=== PATIENT | female | born 1960 | race Caucasian/White ===

== ENCOUNTER 2016-07-08 19:42 | Emergency (ER) | payer OTHER ==
[~2016-07-08] VITALS: Ht 175.3 cm; Wt 72.4 kg
[~2016-07-08 19:42] MED LIST: ATIVAN1 MG PO; AUGMENTIN875 MG PO; CELEXA40 MG PO; INDOCIN50 MG PO; LEVOFLOXACIN750 MG PO; LORTAB 5-500 T1 EACH PO; MOBIC15 MG PO; TUSSIN CF MAX118 ML PO
[2016-07-08 21:18] LABS: BASOPHIL COUNT 0.1 K/uL (0-0.1); EOSINOPHIL (%) 1.3 % (0-5); EOSINOPHIL COUNT 0.1 K/uL (0-0.3); HEMATOCRIT 35.5 % (36.0-46.0); IMMATURE GRANULOCYTE (%) 0.1 % (0.0-0.7); INSTRUMENT ABS NEUTROPHIL CT 2.5 K/uL; LYMPHOCYTE COUNT 4.5 K/uL (1.0-2.8); MCH 30.4 PG (29.0-34.0); MCHC 32.7 G/DL (30.0-36.0); MCV 93.2 FL (83-99); MEAN PLAT.VOLUME 9.7 uM^3 (9.5-12.4); MONOCYTE (%) 7.1 % (3-12); MONOCYTE COUNT 0.5 K/uL (0-0.8); NEUTROPHIL (%) 32.3 % (45-76); NEUTROPHIL COUNT 2.5 K/uL (1.8-6.4); PLATELET COUNT 273 K/uL (156-360); RBC DIS.WIDTH-CV 13.4 % (11.8-14.6); RBC DIS.WIDTH-SD 45.6 % (39-53); RED BLOOD COUNT 3.81 M/uL (3.80-5.20); WHITE BLOOD COUNT 7.6 K/uL (4.1-10.2)
[2016-07-08 21:26] LABS: CHLORIDE 108 mEq/L (99-109); SODIUM 142 mEq/L (136-147)
[2016-07-08 21:27] LABS: GLUCOSE 90 mg/dL (70-99)
[2016-07-08 21:29] LABS: ANION GAP 7 MEQ/L (2-14)
[2016-07-08 21:30] LABS: D-DIMER ELISA 0.25 mg/L FEU (< 0.57); INTER. NORMALIZED RATIO 1.1; PROTHROMBIN TIME 10.7 (9.2-11.2); PTT 26.1 (25-32)
[2016-07-08 21:31] LABS: GFR ESTIMATE (CALCULATED) 50 mL/min/
[2016-07-08 21:32] LABS: UREA NITROGEN (BUN) 12 mg/dL (9-23)
[2016-07-08 21:40] LABS: TROP-I INTERPRETATION NEGATIVE; TROPONIN-I < 0.01 ng/mL (0.0-0.30)
[2016-07-08 22:41] VITALS: BP 133/64
== END 2016-07-08 22:42 | disposition home or self-care (01) ==
LOC: EME 19:42
PROVIDERS: Emergency Medicine
DX: R07.89 Other chest pain (principal); K21.9 Gastro-esophageal reflux disease without esophagitis; Z87.01 Personal history of pneumonia (recurrent)
CPT/HCPCS: 71020; 80048; 84484; 85025; 85379; 85610; 85730; 93005; 99281; 99284; J1885

== ENCOUNTER 2017-01-01 10:37 | Emergency (ER) | payer OTHER ==
[~2017-01-01] VITALS: Ht 167.6 cm; Wt 71.8 kg
[2017-01-01] MEDS ORDERED: XYLOCAINE VISC100 ML PO (14:13)
[2017-01-01] MEDS ORDERED: TESSALON PERLE100 MG PO (14:13)
[2017-01-01 15:07] VITALS: BP 143/62
== END 2017-01-01 15:07 | disposition home or self-care (01) ==
LOC: EME 10:37
DX: R05 Cough (principal); R53.1 Weakness; R13.10 Dysphagia, unspecified; R42 Dizziness and giddiness; J02.9 Acute pharyngitis, unspecified; R68.83 Chills (without fever); R22.0 Localized swelling, mass and lump, head; Z85.89 Personal history of malignant neoplasm of other organs and systems; Z90.81 Acquired absence of spleen
CPT/HCPCS: 71020; 93005; 94640; 99281; 99284

== ENCOUNTER 2017-02-04 11:23 | Observation (INO) | payer OTHER ==
[~2017-02-04] VITALS: Ht 165.1 cm; Wt 60.9 kg
[~2017-02-04 11:23] MED LIST changes: +TESSALON PERLE100 MG PO; +XYLOCAINE VISC100 ML PO
[2017-02-04 11:54] LABS: HEMATOCRIT 38.1 % (36.0-46.0); MCH 29.9 PG (29.0-34.0); MCHC 32.3 G/DL (30.0-36.0); MCV 92.5 FL (83-99); RBC DIS.WIDTH-CV 13.5 % (11.8-14.6); RBC DIS.WIDTH-SD 46.2 % (39-53); RED BLOOD COUNT 4.12 M/uL (3.80-5.20); WHITE BLOOD COUNT 6.9 K/uL (4.1-10.2)
[2017-02-04 12:00] LABS: MEAN PLAT.VOLUME 10.2 uM^3 (9.5-12.4); PLATELET COUNT 281 K/uL (156-360)
[2017-02-04 12:08] LABS: CHLORIDE 105 mEq/L (99-109); POTASSIUM 3.7 mEq/L (3.7-5.4); SODIUM 142 mEq/L (136-147)
[2017-02-04 12:10] LABS: GLUCOSE 93 mg/dL (70-99)
[2017-02-04 12:11] LABS: ANION GAP 9 MEQ/L (2-14)
[2017-02-04 12:14] LABS: GFR ESTIMATE (CALCULATED) > 59 mL/min/
[2017-02-04 12:15] LABS: UREA NITROGEN (BUN) 11 mg/dL (9-23)
[2017-02-04] MEDS ORDERED: FLUOXETINE HCL40 MG PO (16:35)
[2017-02-04] MEDS ORDERED: ASPIR 8181 M1 PO (16:36)
[2017-02-04 19:01] LABS: HDL CHOLESTEROL 47 MG/DL (Desirable>=50); LDL CHOLESTEROL 98 mg/dL (Desirable<100); NON-HDL CHOLESTEROL 111 mg/dL (Desirable<160); SAMPLE HEMOLYSIS CHECK 0; SAMPLE ICTERIC CHECK 0; SAMPLE LIPEMIA CHECK 0; TOTAL CHOLESTEROL 158 mg/dL (Desirable<200); TRIGLYCERIDES 64 MG/DL (Normal: <150)
[2017-02-04 19:19] LABS: TROP-I INTERPRETATION NEGATIVE; TROPONIN-I < 0.01 ng/mL (0.0-0.30)
[2017-02-04 19:57] LABS: Estimated Average Glucose 105 mg/dL (70-123); HEMOGLOBIN A1c (GLYCOHEMOGLOB) 5.3 % HGB (Below 5.7)
[2017-02-04 21:42] VITALS: BP 121/67
[2017-02-04 23:16] LABS: TROP-I INTERPRETATION NEGATIVE; TROPONIN-I < 0.01 ng/mL (0.0-0.30)
[2017-02-05 00:28] VITALS: BP 111/53
[2017-02-05 03:50] VITALS: BP 118/58
[2017-02-05 07:05] VITALS: BP 111/54
[2017-02-05 07:23] LABS: TROP-I INTERPRETATION NEGATIVE; TROPONIN-I < 0.01 ng/mL (0.0-0.30)
[2017-02-05 11:02] VITALS: BP 119/58
== END 2017-02-05 13:40 | disposition home or self-care (01) ==
LOC: EME 11:23 → 5SOUTH 16:30 → EDOF 16:30 → 5SOUTH 16:30 → ENRESERV 16:35 → EDOF 17:01 → 5SOUTH 18:26
PROVIDERS: Internal Medicine
DX: R53.1 Weakness (principal); R20.0 Anesthesia of skin; R47.81 Slurred speech; H53.8 Other visual disturbances; D69.3 Immune thrombocytopenic purpura; Z90.81 Acquired absence of spleen; Z86.74 Personal history of sudden cardiac arrest; I10 Essential (primary) hypertension; M50.223 Other cervical disc displacement at C6-C7 level; Z82.3 Family history of stroke; Z82.49 Family history of ischemic heart disease and other diseases of the circulatory system; Z83.3 Family history of diabetes mellitus; Z79.82 Long term (current) use of aspirin
CPT/HCPCS: 70450; 70544; 70549; 70551; 71020; 72141; 80048; 80061; 83036; 84484; 85027; 93005; 99281; 99285; G0378; G8978 GP CH; G8979 GP CH; G8980 GP CH; J1650